=== PATIENT | male | born 1995 | race Two or more races ===

== ENCOUNTER 2023-05-19 06:23 | Day surgery (SDC) | payer OTHER ==
[~2023-05-19] VITALS: Ht 175.3 cm; Wt 63.5 kg
[~2023-05-19 06:23] MED LIST: CVS1CRE56 TOP; SELE1SH TOP; ceFAZolin SOD 2 GM in IV 1 EA IV ONE
[2023-05-19] MEDS ORDERED: propofoL 200 MG/20 ML VIAL As Ordered ONE (06:57)
[2023-05-19] MEDS ORDERED: ONDANSETRON 4MG 2ML VIAL As Ordered ONE (06:57)
[2023-05-19] MEDS ORDERED: KETOROLAC 60MG 2ML VIAL As Ordered ONE (06:57)
[2023-05-19] MEDS ORDERED: LIDOCAINE 2% 100MG/5ML SDV (FOR ANES.) As Ordered ONE (06:57)
[2023-05-19] MEDS ORDERED: fentaNYL 100 MCG/2 ML INJECTION As Ordered ONE (07:04)
[2023-05-19] MEDS ORDERED: MIDAZOLAM INJ 2MG/2ML VIAL As Ordered ONE (07:05)
[2023-05-19] MEDS ORDERED: GENTAMICIN SULF 80MG/2ML VIAL As Ordered ONE (07:17)
[2023-05-19] MEDS ORDERED: LIDOCAINE 2% MDV 20ML VIAL As Ordered ONE (07:17)
[2023-05-19] MEDS ORDERED: LR 1,000 ML IV SCH (07:25)
[2023-05-19] MEDS ORDERED: ACETAMINOPHEN 1000MG 100ML IV BAG As Ordered ONE (08:00)
[2023-05-19 10:07] VITALS: BP 120/80; TEMP 96.6; O2SAT 100
== END 2023-05-19 10:15 | disposition home or self-care (01) ==
LOC: M SDC 06:23
PROVIDERS: ATTEND Podiatrist
DX: M20.12 Hallux valgus (acquired), left foot (principal); M21.612 Bunion of left foot
CPT/HCPCS: 28299; 73630; 76000; 88300; 97116; C1713; J0131; J0665; J0690; J1100; J1580; J1885; J2250; J2405; J3010